=== PATIENT | male | born 1970 | race American Indian/Alaskan Native ===

== ENCOUNTER 2018-02-02 11:01 | Inpatient (IN) | payer BC, MEDICAID ==
[2018-02-02 11:22] VITALS: BMI 33.6
[2018-02-02] MEDS ORDERED: Sodium Chloride 0.9% 1,000 ML IV STA (11:26)
[2018-02-02] MEDS ORDERED: HYDROmorphone 0.5 mg/0.5 ml ISec IVP STA (11:27)
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
[2018-02-02 12:06] LABS: VENOUS BLOOD GAS BASE EXCESS 5.1 mmol/L (0.0-2.0); VENOUS BLOOD GAS PO2 36 mm/Hg (30-55); VENOUS BLOOD PH 7.36 (7.32-7.43)
[2018-02-02 12:10] LABS: BASO # 0.02 K/mm3 (0.0-2.0); BASO % 0.4 % (0.0-3.0); EOS # 0.1 (0.0-0.7); EOS % 1.2 % (1.5-5.0); GRAN # 2.41 (1.4-6.5); GRAN % 48.4 % (50.0-68.0); HEMOGLOBIN 13.9 g/dL (14.0-18.0); LYMPH % 40.8 % (22.0-35.0); MEAN CELL VOLUME 87.5 fl (80.0-105.0); MEAN CORPUSCULAR HGB CONC 34.3 g/dl (31.0-37.0); MEAN PLATELET VOLUME 8.6 fl (7.0-11.0); MONO # 0.5 (0.1-0.6); MONO % 9.2 % (1.0-6.0); RBC 4.63 10^6/uL (3.5-6.1); RED CELL DISTRIBUTION WIDTH 13.9 % (11.5-14.5)
[2018-02-02 12:14] LABS: ALB/GLOB RATIO 1.4 (1.1-1.8); ALBUMIN 4.4 g/dL (3.0-4.8); ALT/SGPT 52 U/L (7-56); AST/SGOT 51 U/L (17-59); BLOOD UREA NITROGEN 20 mg/dL (7-21); GFR AFRICAN-AMERICAN > 60; GFR NON-AFRICAN AMERICAN 60; LIPASE 41 U/L (23-300)
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
[2018-02-02 12:18] LABS: INR 0.98 (0.93-1.08); PARTIAL THROMBOPLASTIN TIME 30.4 Seconds (25.1-36.5); PROTHROMBIN TIME 11.3 SECONDS (9.4-12.5)
[2018-02-02] MEDS ORDERED: Iohexol 350 MG/100 ML VIAL ONE (12:39)
--- NOTE | 2018-02-02 14:28 | CT ---
PROCEDURE: CT Abdomen and Pelvis with contrast HISTORY: Mid right abdominal tenderness, r/o incarcerated hernia COMPARISON: No prior study available for comparison TECHNIQUE: Contrast dose: Radiation dose: Total exam DLP = 957.21 mGy-cm. This CT exam was performed using one or more of the following dose reduction techniques: Automated exposure control, adjustment of the mA and/or kV according to patient size, and/or use of iterative reconstruction technique. FINDINGS: LOWER THORAX: Minor passive/dependent type atelectasis both posterior lower lung zones. No focal consolidation. No effusion or basilar pneumothorax. LIVER: There are several small low-attenuation foci scattered throughout the hepatic parenchyma, the 2 largest of foci seen in the left lobe mid and right lobe respectively with the 1st exhibiting HU ranging from low 20s to low 30s which could represent hemangioma. . The 2nd in the inferior aspect right lobe exhibits Hounsfield units ranging mid single digits likely representing cyst. Two additional tiny foci in the left and right lobes are too small to characterize. Followup interval could be performed to assess stability. GALLBLADDER AND BILE DUCTS: Gallbladder physiologically distended. No evidence of intraluminal gallbladder calculi. PANCREAS: Visualized portions of the pancreas unremarkable without mass collection or calcification. No significant pancreatic ductal dilatation. SPLEEN: Unremarkable. ADRENALS: No adrenal lesions seen. KIDNEYS AND URETERS: Kidneys demonstrate symmetric nephrograms. No evidence of nephrolithiasis or hydronephrosis. VASCULATURE: Unremarkable. No aortic aneurysm. BOWEL: Evaluation of the bowel is limited due to the lack of oral contrast material. Stomach is incompletely distended which in part accounts for thick-walled appearance. Gastritis not excluded. Note made of localized wall thickening short-segment proximal small bowel left upper abdomen which contains intraluminal fluid. With a 2nd smaller adjacent the focus of small-bowel exhibiting similar in characteristics. The significance of these loops of mid localized small bowel containing thick-walled segments of small bowel containing fluid uncertain though could represent localize peristalsis. Rule out enteritis. Remaining visualized of small bowel exhibit normal contour and caliber. No evidence of acute mechanical small bowel obstruction. Stool and air seen throughout the large bowel. Few scattered colonic diverticula. No radiographic evidence of acute diverticulitis. APPENDIX: Normal-appearing appendix. PERITONEUM: Unremarkable. No free fluid. No free air. Small fat containing right parasagittal ventral wall hernia seen in the mid upper/mid abdomen. Note that the mesenteric fat that extends into the hernia exhibits heterogeneous increased attenuation ; the possibility of a mild panniculitis or possible incarceration of this mesenteric fat not excluded. LYMPH NODES: Unremarkable. No enlarged lymph nodes. BLADDER: Urinary bladder physiologically distended. No evidence of intraluminal urinary bladder calculi. REPRODUCTIVE: Unremarkable. BONES: No acute fracture. OTHER FINDINGS: None. IMPRESSION: No evidence of acute intra abdominal pathology. Findings suggest mild fatty hepatic infiltration. There appear to be at least 3 small low-attenuation foci within the hepatic parenchyma that could represent. The largest of which could represent small hemangioma however the other 2 were too small to characterize. Followup interval could be performed to assess stability. Small fat containing right parasagittal ventral wall hernia seen in the mid upper/mid abdomen. Note that the mesenteric fat that extends into the hernia exhibits heterogeneous increased attenuation ; the possibility of a mild panniculitis or possible incarceration of this mesenteric fat not excluded. Note made of localized wall thickening short-segment proximal small bowel left upper abdomen which contains intraluminal fluid. With a 2nd smaller adjacent the focus of small-bowel exhibiting similar in characteristics. The significance of these loops of mid localized small bowel containing thick-walled segments of small bowel containing fluid uncertain though could represent localize peristalsis. Rule out enteritis.
[2018-02-02] MEDS ORDERED: Morphine 4 mg/ml ISec IVP PRN (15:01)
[2018-02-02 15:26] LABS: PH,URINE 6.5 (4.7-8.0); URINE BILIRUBIN NEGATIVE (NEGATIVE); URINE BLOOD NEGATIVE (NEGATIVE); URINE GLUCOSE (UA) NEGATIVE (NEGATIVE); URINE LEUKOCYTE ESTERASE NEGATIVE Leu/uL (NEGATIVE); URINE PROTEIN NEGATIVE mg/dL (<30 mg/dL); URINE UROBILINOGEN 0.2 E.U./dL (<1 E.U./dL)
--- NOTE | 2018-02-02 15:27 | RAD ---
HISTORY: for surgery in the morning; medical clearance COMPARISON: Comparison also made with concurrent CT scan of the abdomen pelvis which image both lung bases. TECHNIQUE: Chest PA and lateral FINDINGS: LUNGS: No active pulmonary disease. PLEURA: No significant pleural effusion identified. No pneumothorax apparent. CARDIOVASCULAR: Normal. OSSEOUS STRUCTURES: No significant abnormalities. VISUALIZED UPPER ABDOMEN: Normal. OTHER FINDINGS: None. IMPRESSION: No active disease.
[2018-02-02 15:28] LABS: URINE APPEARANCE CLEAR (CLEAR); URINE COLOR YELLOW (YELLOW)
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
[2018-02-03] MEDS: Pantoprazole 40 mg EC Tab PO SCH (05:49)
[2018-02-03 07:47] LABS: HEMOGLOBIN 13.9 g/dL (14.0-18.0); MEAN CELL VOLUME 86.5 fl (80.0-105.0); MEAN CORPUSCULAR HEMOGLOBIN 29.7 pg (25.0-35.0); MEAN CORPUSCULAR HGB CONC 34.3 g/dl (31.0-37.0); MEAN PLATELET VOLUME 8.8 fl (7.0-11.0); RBC 4.68 10^6/uL (3.5-6.1); RED CELL DISTRIBUTION WIDTH 13.7 % (11.5-14.5); WHITE BLOOD COUNT 5.1 10^3/ul (4.5-11.0)
[2018-02-03 08:05] LABS: INR 1.17 (0.93-1.08); PARTIAL THROMBOPLASTIN TIME 26.7 Seconds (25.1-36.5); PROTHROMBIN TIME 13.5 SECONDS (9.4-12.5)
[2018-02-03 08:19] LABS: ALB/GLOB RATIO 1.4 (1.1-1.8); ALBUMIN 4.3 g/dL (3.0-4.8); ALT/SGPT 46 U/L (7-56); AST/SGOT 43 U/L (17-59); BLOOD UREA NITROGEN 15 mg/dL (7-21); CALCIUM 8.8 mg/dL (8.4-10.5); GFR AFRICAN-AMERICAN > 60; GFR NON-AFRICAN AMERICAN > 60
[2018-02-03] MEDS: Levothyroxine 100 MCG TAB PO SCH ×2 (08:50→13:22)
[2018-02-03] MEDS ORDERED: Bupivacaine 0.5% Inj(30mL) ONE (09:18)
[2018-02-03] MEDS ORDERED: Lidocaine 1% Inj (20ml) ONE (09:29)
[2018-02-03] MEDS ORDERED: Midazolam 2 MG/2 ML VIAL ONE (10:02)
[2018-02-03] MEDS ORDERED: Rocuronium 10 mg/ml (5 ml) ONE (10:02)
[2018-02-03] MEDS ORDERED: Succinylcholine 200 mg/10 ml Inj IV ONE (10:02)
[2018-02-03] MEDS ORDERED: Propofol 10 mg/ml Inj (20 ML) ONE (10:02)
[2018-02-03] MEDS ORDERED: Morphine 2 mg/2 mL syringe IVP PRN (10:03)
[2018-02-03] MEDS ORDERED: Phenylephrine 10 mg/ml Inj ONE (10:30)
[2018-02-03] MEDS ORDERED: Neostigmine Methylsulfate 3mg/3ml Syringe IV ONE (10:47)
[2018-02-03] MEDS ORDERED: HYDROmorphone 0.5 mg/0.5 ml ISec IVP PRN (11:49)
--- NOTE | 2018-02-03 11:55 | PCM.SURG1 ---
Surgeon's Initial Post Op Note - Surgeon's Notes Surgeon: Dr. Davila Jtac: Aravind PGY1 Type of Anesthesia: General Endo Anesthesia Administered By: Dr. Sesay Pre-Operative Diagnosis: Ventral hernia Operative Findings: 1 cm Ventral hernia above falciform ligament containing fat Post-Operative Diagnosis: Ventral hernia Operation Performed: Laparoscopic Ventral hernia repair with mesh Specimen/Specimens Removed: falciform fat Estimated Blood Loss: EBL {In ML}: 5 Blood Products Given: N/A Drains Used: No Drains Post-Op Condition: Good Date of Surgery/Procedure: 02/03/18 Time of Surgery/Procedure: 11:55
[2018-02-03] MEDS ORDERED: HYDROmorphone 0.5 mg/0.5 ml ISec IVP ONE (12:21)
[2018-02-03] MEDS ORDERED: HYDROmorphone 0.5 mg/0.5 ml ISec ONE (12:21)
--- NOTE | 2018-02-03 13:07 | CP.PCM.PN ---
Subjective - Date & Time of Evaluation Date of Evaluation: 02/03/18 Time of Evaluation: 13:07 - Subjective Subjective: Patient seen and examined at bedside. Per nursing no acute events occurred overnight. The patient reports feeling fine on examination. He denies any chest pain, shortness of breath, fevers, chills, nausea, vomiting, dizziness, changes in vision, or any other complaints. Objective - Vital Signs/Intake and Output Vital Signs (last 24 hours): Temp Pulse Resp BP Pulse Ox 98.1 F 69 20 144/89 98 02/03/18 12:32 02/03/18 12:32 02/03/18 12:32 02/03/18 12:32 02/03/18 12:32 Intake and Output: 02/03/18 02/03/18 06:59 18:59 Intake Total 480 0 Balance 480 0 - Medications Medications: Current Medications Hydrochlorothiazide (Microzide) 12.5 mg PO BID [facility] Last Admin: 02/02/18 17:35 Dose: 12.5 mg Hydromorphone HCl (Dilaudid) 0.5 mg IVP Q10M PRN PRN Reason: Pain, moderate (4-7) Stop: 02/03/18 13:50 Levothyroxine Sodium (Synthroid) 100 mcg PO DAILY [facility] Last Admin: 02/03/18 08:50 Dose: 100 mcg Lisinopril (Zestril) 20 mg PO BID [facility] Last Admin: 02/02/18 17:36 Dose: 20 mg Metoclopramide HCl (Reglan) 10 mg IV ONCE PRN PRN Reason: Nausea/Vomiting Pantoprazole Sodium (Protonix Ec Tab) 40 mg PO 0600 [facility] Last Admin: 02/03/18 05:49 Dose: Not Given Tramadol HCl (Ultram) 50 mg PO TID PRN PRN Reason: Pain, moderate (4-7) - Labs Labs: 02/03/18 07:40 02/03/18 07:40 PT 13.5 SECONDS (9.4-12.5) H 02/03/18 07:40 INR 1.17 (0.93-1.08) H 02/03/18 07:40 APTT 26.7 Seconds (25.1-36.5) 02/03/18 07:40 - Head Exam Head Exam: ATRAUMATIC, NORMAL INSPECTION, NORMOCEPHALIC - Eye Exam Eye Exam: EOMI, Normal appearance, PERRL Pupil Exam: NORMAL ACCOMODATION - ENT Exam ENT Exam: Mucous Membranes Moist, Normal Oropharynx - Neck Exam Neck Exam: Normal Inspection - Respiratory Exam Respiratory Exam: Clear to Ausculation Bilateral, NORMAL BREATHING PATTERN - Cardiovascular Exam Cardiovascular Exam: REGULAR RHYTHM, +S1, +S2 - GI/Abdominal Exam GI & Abdominal Exam: Soft, Hernia (reducible ), Normal Bowel Sounds - Extremities Exam Extremities Exam: Full ROM, Normal Inspection. absent: Pedal Edema - Back Exam Back Exam: NORMAL INSPECTION. absent: CVA tenderness (R), paraspinal tenderness - Neurological Exam Neurological Exam: Alert, Awake, CN II-XII Intact - Psychiatric Exam Psychiatric exam: Normal Affect, Normal Mood - Skin Skin Exam: Dry, Intact Assessment and Plan - Assessment and Plan (Free Text) Assessment: 47 male without pertinent medical history presents with abdominal pain. CT Abdomen and Pelvis reveals ventral hernia without strangulated bowel. Plan: Ventral Hernia - Morphine 2 q6 PRN Zofran 4 q6 PRN - NPO -Patient cleared by Cardiology Dr. Owen for surgery. - Surgery Consult: Dr. Davila - Expected to go to the O.R. at 10 a.m. History Hypothyroidism - Continue home synthroid History HTN - Continue home lisinopril Prophylaxis - SCD/Protonix
[2018-02-03] MEDS ORDERED: Morphine 4 mg/ml ISec IVP ONE (14:30)
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
[2018-02-03] MEDS: Oxycodone/Acetaminophen 5/325 mg Tab PO PRN (21:08)
--- NOTE | 2018-02-03 22:59 | CARD ---
APPROVED REPORT EKG Measurement Heart [id number] <Conclusion> Marked sinus bradycardia with 1st degree AV block Abnormal ECG
--- NOTE | 2018-02-03 23:04 | OP ---
PROCEDURE DATE: 02/03/2018 PREOPERATIVE DIAGNOSIS: Incarcerated ventral hernia. POSTOPERATIVE DIAGNOSIS: Incarcerated ventral hernia. PROCEDURE: Laparoscopic ventral hernia repair with mesh. SURGEON: Yg Davila MD SAFETY LEAD: Logan Nazario DO. ANESTHESIOLOGIST: Dr. Sesay. ANESTHESIA: General endotracheal anesthesia. ESTIMATED BLOOD LOSS: Minimal. SPECIMEN: None. DESCRIPTION OF PROCEDURE: The patient is a 47-year-old male with history of painful lump in the right upper quadrant just off the midline. The patient was noted to have an incarcerated ventral hernia and was scheduled for the repair. First, a standard timeout procedure took place and everybody in the room agreed as to the patient's identity, diagnosis, and the procedure to be performed. Using lidocaine mixed with Marcaine, the left subcostal margin area was infiltrated and an incision was made for a 12 mm trocar. Next, under direct visualization through the Visiport, the access to the abdominal cavity was obtained with a 12 mm trocar. Careful evaluation of abdominal cavity once pneumoperitoneum was obtained revealed presence of a fat incarcerated in the hernia sac from the Falciform ligament. I then carefully proceeded with the evaluation of the reset of the abdomen showing no evidence of any abnormalities on the visible portion of the bowel and liver. A 5 mm trocar was inserted into the left lower quadrant at the anterior axillary line. We then proceeded with carefully teasing out the hernia from the hernia sac and once completely removed the Falciform ligament was detached from the anterior abdominal wall exposing the fascia. The defect was about 2 cm and I then proceeded with using a 9 cm patch of Symbotex in order to repair the hernia. The patch was placed against the defect leaving about 4 cm of margins and it was attached with disposable packers. Two layers of packers were used. The Falciform ligament, which was earlier detached was now attached on top of the mesh covering it completely. Now, careful evaluation of abdominal cavity revealed no bleeding from the dissected portion of the peritoneum. There was also no bleeding from the trocar site. The pneumoperitoneum was now released and trocars removed. The wounds were closed using 0 Vicryl for the fascia, 3-0 Vicryl for subcutaneous tissue and 4-0 Monocryl for skin. A sterile Dermabond dressing was applied to the wounds. The patient tolerated the procedure well and there was no complications. The patient was awakened, extubated and transferred to the recovery room for further observation. Yg Davila MD
[2018-02-04] MEDS ORDERED: Simethicone 80 mg Chewtab PO PRN (00:05)
[2018-02-04] MEDS: Oxycodone/Acetaminophen 5/325 mg Tab PO PRN (04:35)
[2018-02-04] MEDS: Pantoprazole 40 mg EC Tab PO SCH (05:27)
--- NOTE | 2018-02-04 07:32 | CP.PCM.PN ---
Subjective - Date & Time of Evaluation Date of Evaluation: 02/04/18 Time of Evaluation: 07:31 - Subjective Subjective: General Surgery Note for Dr. Davila Patient seen and examined at bedside. No acute event overnight. Yesterday, patient was scheduled to be discharged but developed a rash from Tramadol. Pain medicatio was changed. Patient also complaining of bloating and distention. Denies flatus or BM. Patient was given enema from primary without BM. Patient states pain is present still but pain medications are helping. Patient is able to go home today with pain medication. Objective - Vital Signs/Intake and Output Vital Signs (last 24 hours): Temp Pulse Resp BP Pulse Ox 98.6 F 50 L 18 121/77 96 02/03/18 21:35 02/03/18 21:35 02/03/18 21:35 02/03/18 21:35 02/03/18 21:35 Intake and Output: 02/04/18 02/04/18 06:59 18:59 Intake Total 1340 Balance 1340 - Medications Medications: Current Medications Docusate Sodium (Colace) 100 mg PO BID [facility] Last Admin: 02/03/18 21:04 Dose: 100 mg Hydrochlorothiazide (Microzide) 12.5 mg PO BID [facility] Last Admin: 02/03/18 17:20 Dose: 12.5 mg Ibuprofen (Motrin Tab) 600 mg PO Q6H PRN PRN Reason: Pain, Mild (1-3) Levothyroxine Sodium (Synthroid) 100 mcg PO DAILY [facility] Last Admin: 02/03/18 13:22 Dose: Not Given Lisinopril (Zestril) 20 mg PO BID [facility] Last Admin: 02/03/18 17:20 Dose: 20 mg Metoclopramide HCl (Reglan) 10 mg IV ONCE PRN PRN Reason: Nausea/Vomiting Oxycodone/Acetaminophen (Percocet 5/325 Mg Tab) 1 tab PO Q6H PRN PRN Reason: Pain, moderate (4-7) Stop: 02/06/18 19:57 Last Admin: 02/04/18 04:35 Dose: 1 tab Pantoprazole Sodium (Protonix Ec Tab) 40 mg PO 0600 [facility] Last Admin: 02/04/18 05:27 Dose: 40 mg Simethicone (Mylicon Chew Tab) 80 mg PO PCHS PRN PRN Reason: GI distress Last Admin: 02/04/18 00:34 Dose: 80 mg - Labs Labs: 02/03/18 07:40 02/03/18 07:40 PT 13.5 SECONDS (9.4-12.5) H 02/03/18 07:40 INR 1.17 (0.93-1.08) H 02/03/18 07:40 APTT 26.7 Seconds (25.1-36.5) 02/03/18 07:40 - Constitutional Appears: No Acute Distress - Head Exam Head Exam: ATRAUMATIC, NORMOCEPHALIC - Eye Exam Eye Exam: EOMI, Normal appearance Pupil Exam: PERRL - ENT Exam ENT Exam: Mucous Membranes Moist - Neck Exam Neck Exam: Normal Inspection - Respiratory Exam Respiratory Exam: NORMAL BREATHING PATTERN - Cardiovascular Exam Cardiovascular Exam: REGULAR RHYTHM, +S1, +S2 - GI/Abdominal Exam GI & Abdominal Exam: Distended (mild), Soft, Tenderness (at surgical site and previous hernia site), Normal Bowel Sounds. absent: Firm, Guarding, Hernia, Mass, Organomegaly, Rebound - Extremities Exam Extremities Exam: Normal Capillary Refill - Back Exam Back Exam: absent: CVA tenderness (L), CVA tenderness (R) - Neurological Exam Neurological Exam: Alert, Awake, CN II-XII Intact, Oriented x3 - Psychiatric Exam Psychiatric exam: Normal Affect, Normal Mood - Skin Skin Exam: Dry, Intact, Normal Color, Warm Assessment and Plan - Assessment and Plan (Free Text) Assessment: 47 M who s/p Laparoscopic Ventral Hernia POD #1 Plan: -Regular diet -Analgesic/Anti-emetics PRN -Stool softners -Patient may go home with Percocet and stool softners -Clear for discharge from surgical standpoint -No heavy lifting for 4 weeks -Keep area clean and try -Patient may shower -Follow up as outpatient with Dr. Davila in his office within 1-2 weeks -Discussed with Dr. Lola Nazario PGY1
[2018-02-04 07:39] VITALS: RESP 20
--- NOTE | 2018-02-04 07:49 | CP.PCM.PN ---
Subjective - Date & Time of Evaluation Date of Evaluation: 02/04/18 Time of Evaluation: 06:15 - Subjective Subjective: Sleeping but easily awaken, no distress Reason for consultation and follow up: Cardiac evaluation and clearance for hernia repair, history of hypertension,thyroidectomy, Left knee surgery, L arm surgery,hypothyroidism,Sparingly drinks alcohol; Sparingly uses tobacco; + Marijuana 3X weekly. Seen and examined by me and Dr. Owen Objective - Vital Signs/Intake and Output Vital Signs (last 24 hours): Temp Pulse Resp BP Pulse Ox 98.9 F 69 20 112/80 98 02/04/18 06:00 02/04/18 06:00 02/04/18 06:00 02/04/18 06:00 02/04/18 06:00 Intake and Output: 02/04/18 02/04/18 06:59 18:59 Intake Total 1340 Balance 1340 - Medications Medications: Current Medications Docusate Sodium (Colace) 100 mg PO BID [facility] Last Admin: 02/03/18 21:04 Dose: 100 mg Hydrochlorothiazide (Microzide) 12.5 mg PO BID [facility] Last Admin: 02/03/18 17:20 Dose: 12.5 mg Ibuprofen (Motrin Tab) 600 mg PO Q6H PRN PRN Reason: Pain, Mild (1-3) Levothyroxine Sodium (Synthroid) 100 mcg PO DAILY [facility] Last Admin: 02/03/18 13:22 Dose: Not Given Lisinopril (Zestril) 20 mg PO BID [facility] Last Admin: 02/03/18 17:20 Dose: 20 mg Metoclopramide HCl (Reglan) 10 mg IV ONCE PRN PRN Reason: Nausea/Vomiting Oxycodone/Acetaminophen (Percocet 5/325 Mg Tab) 1 tab PO Q6H PRN PRN Reason: Pain, moderate (4-7) Stop: 02/06/18 19:57 Last Admin: 02/04/18 04:35 Dose: 1 tab Pantoprazole Sodium (Protonix Ec Tab) 40 mg PO 0600 [facility] Last Admin: 02/04/18 05:27 Dose: 40 mg Simethicone (Mylicon Chew Tab) 80 mg PO HS PRN PRN Reason: GI distress Last Admin: 02/04/18 00:34 Dose: 80 mg - Labs Labs: 02/03/18 07:40 02/03/18 07:40 PT 13.5 SECONDS (9.4-12.5) H 02/03/18 07:40 INR 1.17 (0.93-1.08) H 02/03/18 07:40 APTT 26.7 Seconds (25.1-36.5) 02/03/18 07:40 Assessment and Plan - Assessment and Plan (Free Text) Assessment: A 47 year old male who came in to the ER due to 3 day duration of abdominal pain associated with nausea and vomiting and alleviated by laying flat and not moving. History of hypertension,thyroidectomy, Left knee surgery, L arm surgery, hypothyroidism,Sparingly drinks alcohol; Sparingly uses tobacco; +Marijuana 3X weekly. Had right ventral hernia repair 02/03/18. Plan: First day post op, post right ventral hernia repair Doing well, PRN medication for pain Blood pressure and heart rate controlled Continue current medications Continue current treatment OOB to chair/ambulate Will follow up Plan and treatment discussed with Dr. Owen
[2018-02-04] MEDS: Levothyroxine 100 MCG TAB PO SCH (09:47)
--- NOTE | 2018-02-04 13:29 | CP.PCM.DIS ---
Provider - Provider Date of Admission: 02/02/18 14:53 Attending physician: Cristy Fong MD Primary care physician: Poonam Sutton MD Time Spent in preparation of Discharge (in minutes): 45 Hospital Course - Lab Results Lab Results: Most Recent Lab Values WBC 5.1 10^3/ul (4.5-11.0) 02/03/18 07:40 RBC 4.68 10^6/uL (3.5-6.1) 02/03/18 07:40 Hgb 13.9 g/dL (14.0-18.0) L 02/03/18 07:40 Hct 40.5 % (42.0-52.0) L 02/03/18 07:40 MCV 86.5 fl (80.0-105.0) 02/03/18 07:40 MCH 29.7 pg (25.0-35.0) 02/03/18 07:40 MCHC 34.3 g/dl (31.0-37.0) 02/03/18 07:40 RDW 13.7 % (11.5-14.5) 02/03/18 07:40 Plt Count 221 10^3/uL (120.0-450.0) 02/03/18 07:40 MPV 8.8 fl (7.0-11.0) 02/03/18 07:40 Gran % 48.4 % (50.0-68.0) L 02/02/18 12:00 Lymph % (Auto) 40.8 % (22.0-35.0) H 02/02/18 12:00 Mills % (Auto) 9.2 % (1.0-6.0) H 02/02/18 12:00 Eos % (Auto) 1.2 % (1.5-5.0) L 02/02/18 12:00 Baso % (Auto) 0.4 % (0.0-3.0) 02/02/18 12:00 Gran # 2.41 (1.4-6.5) 02/02/18 12:00 Lymph # (Auto) 2.0 (1.2-3.4) 02/02/18 12:00 Mills # (Auto) 0.5 (0.1-0.6) 02/02/18 12:00 Eos # (Auto) 0.1 (0.0-0.7) 02/02/18 12:00 Baso # (Auto) 0.02 K/mm3 (0.0-2.0) 02/02/18 12:00 PT 13.5 SECONDS (9.4-12.5) H 02/03/18 07:40 INR 1.17 (0.93-1.08) H 02/03/18 07:40 APTT 26.7 Seconds (25.1-36.5) 02/03/18 07:40 pO2 36 mm/Hg (30-55) 02/02/18 12:00 VBG pH 7.36 (7.32-7.43) 02/02/18 12:00 VBG pCO2 57.0 (40-60) 02/02/18 12:00 VBG HCO3 32.2 mmol/l (21-28) H 02/02/18 12:00 VBG Total CO2 33.9 mmol.L (22-28) H 02/02/18 12:00 VBG O2 Sat (Calc) 73.5 % (40-65) H 02/02/18 12:00 VBG Base Excess 5.1 mmol/L (0.0-2.0) H 02/02/18 12:00 VBG Potassium 3.9 mmol/L (3.6-5.2) 02/02/18 12:00 Sodium 139.0 mmol/L (132-148) 02/02/18 12:00 Chloride 105.0 mmol/L (98-107) 02/02/18 12:00 Glucose 99 mg/dl (75-110) 02/02/18 12:00 Lactate 1.0 mmol/L (0.7-2.1) 02/02/18 12:00 FiO2 21.0 % 02/02/18 12:00 Sodium 141 mmol/L (132-148) 02/03/18 07:40 Potassium 4.0 mmol/L (3.6-5.0) 02/03/18 07:40 Chloride 101 mmol/L (98-107) 02/03/18 07:40 Carbon Dioxide 28 mmol/L (21-33) 02/03/18 07:40 Anion Gap 15 (10-20) 02/03/18 07:40 BUN 15 mg/dL (7-21) 02/03/18 07:40 Creatinine 1.1 mg/dl (0.8-1.5) 02/03/18 07:40 Est GFR ( Amer) > 60 02/03/18 07:40 Est GFR (Non-Af Amer) > 60 02/03/18 07:40 Random Glucose 107 mg/dL (70-110) 02/03/18 07:40 Calcium 8.8 mg/dL (8.4-10.5) 02/03/18 07:40 Total Bilirubin 0.4 mg/dL (0.2-1.3) 02/03/18 07:40 AST 43 U/L (17-59) 02/03/18 07:40 ALT 46 U/L (7-56) 02/03/18 07:40 Alkaline Phosphatase 57 U/L (38-126) 02/03/18 07:40 Total Protein 7.4 g/dL (5.8-8.3) 02/03/18 07:40 Albumin 4.3 g/dL (3.0-4.8) 02/03/18 07:40 Globulin 3.2 gm/dL 02/03/18 07:40 Albumin/Globulin Ratio 1.4 (1.1-1.8) 02/03/18 07:40 Lipase 41 U/L (23-300) 02/02/18 12:00 Venous Blood Potassium 3.9 mmol/L (3.6-5.2) 02/02/18 12:00 Urine Color Yellow (YELLOW) 02/02/18 14:45 Urine Appearance Clear (CLEAR) 02/02/18 14:45 Urine pH 6.5 (4.7-8.0) 02/02/18 14:45 Ur Specific Hubbard 1.010 (1.005-1.035) 02/02/18 14:45 Urine Protein Negative mg/dL (<30 mg/dL) 02/02/18 14:45 Urine Glucose (UA) Negative mg/dL (NEGATIVE) 02/02/18 14:45 Urine Ketones Negative mg/dL (NEGATIVE) 02/02/18 14:45 Urine Blood Negative (NEGATIVE) 02/02/18 14:45 Urine Nitrate Negative (NEGATIVE) 02/02/18 14:45 Urine Bilirubin Negative (NEGATIVE) 02/02/18 14:45 Urine Urobilinogen 0.2 E.U./dL (<1 E.U./dL) 02/02/18 14:45 Ur Leukocyte Esterase Negative Monserrat/uL (NEGATIVE) 02/02/18 14:45 Blood Type A NEGATIVE 02/02/18 11:34 Blood Type Confirm A NEGATIVE 02/03/18 08:00 Antibody Screen Negative 02/02/18 11:34 BBK History Checked No verified bt 02/02/18 11:34 - Hospital Course Hospital Course: Chief Complaint:Abdominal pain HPI:47 year old male with no pertinent medical history presents with 3 day duration of abdominal pain associated with nausea and vomiting and alleviated by laying flat and not moving. Patient does admit to subjective fevers but attributes this to a head cold that he had. Patient states that he feels a ' knot' in the affected area. He denies having anything like this in the past. Patient further denies any hematochezia, diarrhea, hematemesis, or hematuria. Hospital Course: While admitted the patient was found to have a ventral hernia on on abdomen/ pelvis CT scan. The patient was seen by Surgery who recommended a repair of the defect. The patient agreed and underwent a repair for the ventral hernia. The patient tolerated the surgery well with no complaints. The patient intially was given tramadol one time dose for pain control and begin to report itching. The patient also had yet to pass gas or have a bowel movement. It was decided to watch the patient overnight. The next morning the patient was tolerating diet, passing gas, and pain level was controlled. The patient was discharged with the following instructions. Imaging: Chest xray: no active disease Ab/pelvis ct scan: small fat containing right parasagittal ventral wall hernia seen in mid upper/mid abdomen. For full report see EMR. Consults: Surgery Discharge Instructions: Call to schedule an appointment with Dr. Davila in his office in 1 week. You may shower and resume normal daily activities but do not lift >15 pounds for 4-[address] Davila has cleared you to do so. Take stool softeners to prevent straining, especially when taking pain medication. Do not smoke Call Dr. Davila's office if you are not passing gas 24hours from surgery Call Dr. Davila's office or come to ER for fever >100.4 that does not get better with tylenol or advil, severe nausea or vomiting, or severe pain or any other concerning symptoms Discharge Exam - Head Exam Head Exam: ATRAUMATIC, NORMAL INSPECTION, NORMOCEPHALIC - Eye Exam Eye Exam: EOMI, Normal appearance, PERRL Pupil Exam: NORMAL ACCOMODATION, PERRL - ENT Exam ENT Exam: Mucous Membranes Moist, Normal Oropharynx - Respiratory Exam Respiratory Exam: Clear to PA & Lateral, NORMAL BREATHING PATTERN, UNREMARKABLE - Cardiovascular Exam Cardiovascular Exam: REGULAR RHYTHM, +S1, +S2 - GI/Abdominal Exam GI & Abdominal Exam: Normal Bowel Sounds Additional comments: Well healing incision sites. no discharge or erythema. - Back Exam Back exam: NORMAL INSPECTION. absent: paraspinal tenderness - Neurological Exam Neurological exam: Alert, CN II-XII Intact, Oriented x3 - Psychiatric Exam Psychiatric exam: Normal Affect, Normal Mood - Skin Skin Exam: Dry, Intact, Normal Color, Warm Discharge Plan - Discharge Medications Prescriptions: Docusate [Colace] 100 mg PO DAILY #14 cap oxyCODONE/Acetaminophen [Percocet 5/325 mg Tab] 1 tab PO Q6 PRN #12 PRN Reason: Pain, Severe (8-10) traMADol [Ultram] 50 mg PO TID #12 tab - Follow Up Plan Condition: STABLE Disposition: HOME/ ROUTINE Instructions: Laparoscopic Herniorrhaphy (DC), Inguinal Hernia (DC), Acute Abdominal Pain (DC) Additional Instructions: Call to schedule an appointment with Dr. Davila in his office in 1 week. You may shower and resume normal daily activities but do not lift >15 pounds for 4-[address] Davila has cleared you to do so. Take stool softeners to prevent straining, especially when taking pain medication. Do not smoke Call Dr. Davila's office if you are not passing gas 24hours from surgery Call Dr. Davila's office or come to ER for fever >100.4 that does not get better with tylenol or advil, severe nausea or vomiting, or severe pain or any other concerning symptoms Referrals: oPonam Sutton MD [Primary Care Provider] - Yg Davila MD [Staff Provider] -
[2018-02-04 15:12] VITALS: BP 122/85; PULSE 76; TEMP 99.8; O2SAT 95
== END 2018-02-04 18:49 | disposition home or self-care (01) | DRG 160 ==
LOC: ED 11:01 → ERH 14:53 → 5RSO 16:29
PROVIDERS: ADMIT Internal Medicine; ATTEND Internal Medicine
PROC: 0WUF4JZ Supplement Abdominal Wall with Synthetic Substitute, Percutaneous Endoscopic Approach (ICD-10-PCS; principal; 2018-02-03 09:00)
DX: K43.6 Other and unspecified ventral hernia with obstruction, without gangrene (principal); I10 Essential (primary) hypertension; L27.0 Generalized skin eruption due to drugs and medicaments taken internally; T40.4X5A Adverse effect of other synthetic narcotics, initial encounter; E89.0 Postprocedural hypothyroidism